=== PATIENT | male | born 1995 | race Caucasian/White ===

== ENCOUNTER → 2017-01-28 | Outpatient (REF) ==
[~2017-01-28] MED LIST: ADDERALL XR15 MG PO
== END ==
LOC: WSOH 07:15
DX: Z01.89 Encounter for other specified special examinations (principal)

== ENCOUNTER → 2017-01-29 | Outpatient (REF) | LOC: WSOH 10:12 | DX: Z00.00 Encounter for general adult medical examination without abnormal findings (principal) ==

== ENCOUNTER → 2017-01-31 | Outpatient (REF) | LOC: WSOH 14:52 | DX: Z01.89 Encounter for other specified special examinations (principal) ==

== ENCOUNTER 2017-03-22 18:22 | Emergency (ER) | payer OTHER ==
[~2017-03-22] VITALS: Ht 180.3 cm; Wt 85.5 kg
[2017-03-22 18:26] VITALS: BP 148/63; PULSE 77; TEMP 98.5
[2017-03-22] MEDS ORDERED: ADDERALL XR15 MG PO (18:28)
== END 2017-03-22 19:34 | disposition home or self-care (01) ==
LOC: COL.ER 18:22
DX: S40.012A Contusion of left shoulder, initial encounter (principal); W03.XXXA Other fall on same level due to collision with another person, initial encounter; Y92.218 Other school as the place of occurrence of the external cause; F90.9 Attention-deficit hyperactivity disorder, unspecified type

== ENCOUNTER 2017-03-27 07:58 | Outpatient (RCR) | payer OTHER | END 2017-03-28 10:59 | LOC: WSOH 07:58 | DX: M25.512 Pain in left shoulder (principal); W50.0XXA Accidental hit or strike by another person, initial encounter; Y99.0 Civilian activity done for income or pay ==

== ENCOUNTER → 2017-04-01 | Outpatient (REF) | LOC: WSOH | DX: Z01.89 Encounter for other specified special examinations (principal) ==

== ENCOUNTER 2018-02-14 23:22 | Emergency (ER) | payer OTHER ==
[~2018-02-14] VITALS: Ht 177.8 cm; Wt 80.9 kg
[2018-02-14 23:32] VITALS: BP 135/78; PULSE 80; TEMP 98.2
== END 2018-02-15 02:14 | disposition home or self-care (01) ==
LOC: COL.ER 23:22
DX: H61.21 Impacted cerumen, right ear (principal)